=== PATIENT | male | born 1980 | race Caucasian/White ===

== ENCOUNTER 2024-10-30 15:02 | Emergency (ER) | payer SELFPAY ==
[2024-10-30 15:26] VITALS: BP 103/73; PULSE 85; RESP 17; TEMP 37.1; O2SAT 98
--- NOTE | 2024-10-30 16:24 | ED.EYEPROB ---
HPI - Eye Problem General Chief complaint: Eye Problems Stated complaint: FB left eye-dry wall dust Time Seen by Provider: 10/30/24 15:53 History of Present Illness HPI Narrative: Patient is a 44-year-old male who presents ER with left eye pain and difficulty seeing. He was at work where he is holding a piece of drywall loss may use Dremel tool to cut it. There was a small fan that was blowing the dust away flu him in the face. Immediately rinsed his eyes. His right eye felt better but the left eye has continued to cause discomfort and has blurred vision. He does have some tearing. Irritation scar noted. Mild photophobia. Related Data Allergies Allergy/AdvReac Type Severity Reaction Status Date / Time No Known Allergies Allergy Unverified 10/30/24 15:03 Review of Systems Constitutional: Constitutional: Reports no additional constitutional complaints Eyes: Eyes: Reports no additional eye complaints PMFSH Past Medical History Medical History Attention deficit disorder History of kidney stones Family History Family History Grandparent Heart disease Grandfather Pacemaker Grandmother Other IBS (irritable colon syndrome) Social History Social History (Updated 07/08/21 @ 07:51 by Tracy Dinh) Social History: Smoking status: Never smoker Second hand tobacco smoke exposure: No Alcohol intake: never Substance use: never Substance use type: does not use Living arrangements: with family Occupation/Education: occupation Additional occupation/education comments: [place] Gender identity (if verbalized by the patient): Male Sexual Orientation (if Verbalized by the Patient): Straight or Heterosexual Exam Narrative: GENERAL: Well-appearing, well-nourished, and in no acute distress. HEAD: Normocephalic, atraumatic. EYES: PERRL and EOMI. Left eye with scleral injection. Punctate diffuse abrasion noted across the cornea. No foreign body visualized. Eyelid eversion performed. Normal right eye. Visual acuity 20/13 on the right. Unable to assess left due to blurriness. ENT: Mucous membranes moist. NEURO: Alert and oriented x3. PSYCH: Normal mood and affect. Course Course Emergency Course: Eye exam performed with magnification floor since standing. Discussed corneal abrasion. Discussed need follow-up with an eye doctor if not improving. Patient does not wear contacts or glasses. He was not wearing his safety glasses during situation. Vital Signs Vital signs: Vital Signs Temperature 98.8 F 10/30/24 15:26 Pulse Rate 85 10/30/24 15:26 Respiratory Rate 17 10/30/24 15:26 Blood Pressure 103/73 10/30/24 15:26 Pulse Oximetry 98 10/30/24 15:26 Oxygen Delivery Room Air 10/30/24 15:26 Temperature 98.8 F 10/30/24 15:26 Pulse Rate 85 10/30/24 15:26 Respiratory Rate 17 10/30/24 15:26 Blood Pressure 103/73 10/30/24 15:26 Pulse Oximetry 98 10/30/24 15:26 Oxygen Delivery Room Air 10/30/24 15:26 Discharge Plan Discharge Clinical Impression: Corneal abrasion Patient Disposition: Home Condition: Stable Instructions: Antibiotic Form, Corneal Abrasion (ED) Patient Language: [place] Prescriptions: New erythromycin 5 mg/gram (0.5 %) ointment 0.5 inch LEFT EYE QID Qty: 3.5 0RF hydrocodone-acetaminophen 5-325 mg tablet 1 tablet PO Q6H PRN (Reason: pain) Qty: 10 0RF Artificial Tears (cmc) 1 % drops 1 drp LEFT EYE QID Qty: 15 0RF No Action fluoxetine 20 mg capsule 20 mg PO DAILY Qty: 90 1RF levothyroxine 50 mcg tablet See Rx Instructions .ROUTE .COMPLEX Qty: 90 1RF Dose Instruction: TAKE 1 TABLET BY MOUTH DAILY Rx Instructions: TAKE 1 TABLET BY MOUTH DAILY Follow-up/Referrals: eye doctor [Other] - 3 Days Deepthi Canseco MD [Primary Care Provider] -
[2024-10-30 16:49] VITALS: BP 120/65; PULSE 71; RESP 14; O2SAT 98
== END 2024-10-30 16:52 | disposition home or self-care (01) ==
LOC: ANHED 16:39
PROVIDERS: Emergency Provider Emergency Medicine; PCP Family Medicine
DX: S05.02XA Injury of conjunctiva and corneal abrasion without foreign body, left eye, initial encounter (principal); F98.8 Other specified behavioral and emotional disorders with onset usually occurring in childhood and adolescence; Z87.442 Personal history of urinary calculi
CPT/HCPCS: 99283